=== PATIENT | female | born 1985 | race Caucasian/White ===

== ENCOUNTER 2017-03-29 06:39 | Emergency (ER) | payer OTHER ==
[2017-03-29 07:22] VITALS: BMI 25.7
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
[2017-03-29] MEDS ORDERED: SODIUM CHLORIDE 1,000 ML IV STA (08:19)
[2017-03-29] MEDS ORDERED: METOCLOPRAMIDE HCL 10 MG TABLET (FP) PO ONE ×2 (08:19→08:32)
[2017-03-29] MEDS ORDERED: diphenhydrAMINE HCL 12.5 MG/5 ML UNIT-DOSE CUPS PO ONE (08:19)
[2017-03-29] MEDS ORDERED: ACETAMINOPHEN 325 MG TABLET (FP) PO ONE (08:30)
[2017-03-29] MEDS ORDERED: ACETAMINOPHEN 325 MG TABLET (FP) ONE (08:31)
[2017-03-29] MEDS ORDERED: diphenhydrAMINE HCL 25 MG CAPSULE (FP) PO ONE (08:32)
[2017-03-29] MEDS: ACETAMINOPHEN 325 MG TABLET (FP) PO ONE ×2 (08:34→08:35)
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
[2017-03-29 11:06] VITALS: BP 135/71; PULSE 85; TEMP 98.1
== END 2017-03-29 11:06 | disposition home or self-care (01) ==
LOC: JER 06:39
DX: J32.2 Chronic ethmoidal sinusitis (principal); J32.3 Chronic sphenoidal sinusitis
CPT/HCPCS: 70450-TC; 84703; 99283-25